=== PATIENT | male | born 1975 | race Caucasian/White ===

== ENCOUNTER 2018-01-28 14:25 | Emergency (ER) | payer OTHER ==
[~2018-01-28 14:25] MED LIST: ALL180 PO; ATEN50TA8 PO; LISI-725 PO; [UNRECOGNIZED DRUG - CODE] PO
[2018-01-28 14:30] VITALS: TEMP 36.8; Ht 177.8 cm
[2018-01-28] MEDS ORDERED: AMOX875T PO (14:48)
[2018-01-28] MEDS ORDERED: METH4PAK PO (14:48)
--- NOTE | 2018-01-28 14:54 | EMERGENCY ROOM VISIT NOTE ---
History First contact with patient: 14:35 Chief Complaint: FLU LIKE SX Stated Complaint: FLU LIKE SYMPTOMS History of Present Illness The patient is a 42 year old male who presents to the Emergency Room with complaints of significant sinus congestion, postnasal drip, headaches, chills and diarrhea. Patient reports that he developed cold-like symptoms 4 days ago, and now is having more cough and sinus congestion. He has taken Coricidin without any relief of symptoms. His diarrhea started yesterday. He denies any known sick contacts. Patient does report a history of chronic sinusitis. Patient denies history of diabetes. He denies any pain. Review of Systems 10 system review was performed and was negative except for pertinent positives and negatives as indicated in history of present illness Past Medical/Surgical History Medical Problems: (1) Hypertension Nos (2) Morbid obesity Surgical Problems: (1) No history of previous surgery Family History Unremarkable Social History Smoking Status: Current Some Day Smoker Alcohol Use: occasionally Marital Status: Housing Status: lives with family Occupation Status: employed Current/Historical Medications Scheduled Amoxicillin & Pot Clavulanate (Augmentin 875-125 mg), 1 TAB PO BID Amoxicillin/Clavulanate Potas (Augmentin Xr *), 2 TAB PO Q12HR Atenolol (Tenormin), 50 MG PO DAILY Fexofenadine Hcl (Kristie *), 180 MG PO DAILY Lisinopril (Zestril), 20 MG PO DAILY Methylprednisolone (Medrol Dosepak), 0 PO DAILY Physical Exam Vital Signs Date Time Temp Pulse Resp B/P (MAP) Pulse Ox O2 Delivery O2 Flow Rate FiO2 01/28/18 14:30 36.8 98 20 127/71 94 Room Air Physical Exam CONSTITUTIONAL: Healthy and well nourished. Alert and oriented X 3 with positive affect. Patient has no cough while in the emergency department. HEENT: Normocephalic, atraumatic. Pupils equal, round and reactive. Examination of the ears shows TM bulging bilaterally without air-fluid levels or purulent effusion. Patient has tenderness to palpation and percussion of the frontal sinuses. Rhinorrhea is noted bilaterally. No facial edema or erythema noted. OROPHARYNX: Mild postnasal drip noted. No tonsillar hypertrophy or exudates. NECK: Full active range of motion without discomfort. RESPIRATORY: Clear to auscultation bilaterally with no wheezing, crackles, rhonchi or stridor. CARDIOVASCULAR: Regular rate and rhythm with no murmurs, rubs or gallops. INTEGUMENTARY: No rash or other significant dermatologic conditions noted. NEUROLOGIC: No focal neurologic deficits noted. Medical Decision & Procedures ED Course Patient history and physical exam were performed. Nurse's notes were reviewed. Vital signs were reviewed and were normal. The patient is afebrile. Patient does not appear in any acute distress. History and physical exam findings are consistent with an acute sinusitis. Given that the patient has a history of asthma, I did elect to treat him with antibiotics and corticosteroids. The patient was provided a prescription for Augmentin and Medrol Dosepak. He may take loperamide as needed for diarrhea. The patient was instructed to follow- up with his PCP if symptoms are not improving within the next 2-3 days. The patient was happy with plan of care, voiced understanding of all discharge instructions, and denied any pain at the time of discharge. Medical Decision Impression Primary Impression: Acute sinusitis Departure Information Dispostion Home / Self-Care Prescriptions Methylprednisolone (MEDROL DOSEPAK) 4 Mg Brendan 0 PO DAILY, #1 PKT Prov: Torsten Raymundo PA 01/28/18 Amoxicillin & Pot Clavulanate (Augmentin 875-125 mg) 1 Tab Tab 1 TAB PO BID for 10 Days, #20 TAB Prov: Torsten Raymundo PA 01/28/18 Forms HOME CARE DOCUMENTATION FORM, IMPORTANT VISIT INFORMATION Patient Instructions My [facility] Additional Instructions Complete all Augmentin antibiotics and prednisone as prescribed. Suggest taking these medications with food. Take loperamide as needed for diarrhea. Increase fluid intake. Follow-up with your PCP if symptoms are not improving within the next 2-3 days. Problem Qualifiers Primary Impression: Acute sinusitis Sinusitis location: frontal Recurrence: non-recurrent Qualified Codes: J01.10 - Acute frontal sinusitis, unspecified
[2018-01-28 15:10] VITALS: BP 148/80; PULSE 88; O2SAT 98
== END 2018-01-28 15:11 | disposition home or self-care (01) ==
LOC: C.EDB 14:27 → C.EDD 15:11
DX: J01.10 Acute frontal sinusitis, unspecified (principal); I10 Essential (primary) hypertension; J32.9 Chronic sinusitis, unspecified; E66.3 Overweight; F17.200 Nicotine dependence, unspecified, uncomplicated; Z79.899 Other long term (current) drug therapy